=== PATIENT | male | born 1965 | race Caucasian/White ===

== ENCOUNTER 2016-06-28 23:59 | Emergency (ER) | payer MEDICARE ==
--- NOTE | ~2016-06-28 | CR72 ---
[facility] A Service of [facility] & [facility] RADIOLOGY TEXT RESULTS PATIENT: SHAGGY ARCHER LOCATION: [facility] : 67 UNIT #: [id number] AGE: [address]: Karson Gibson MD SEX: M ORDER DR: [id number] [facility] [address] [place], [place] [address] [id number] E MR#: [id number] Acc #: [id number] NAME: SHAGGY ARCHER. : 1965 SEX: M STUDY DATE/TIME: 06/29/2016 0:43 UNIT: [facility] ROOM: STUDY DESCRIPTION: CR Chest Single View Portable Attending Physician: Elyse Ramirez M.D. Ordering Physician: Elyse Ramirez M.D. Primary Care Physician: Primary Care Physician No MEDICAL IMAGING REPORT This report is preliminary unless electronic signature is present EXAM Portable chest INDICATIONS Left sided chest pain for 1 month. COMPARISON 04/23/2016. FINDINGS A portable view of the chest was obtained. The heart size and vascularity are normal and the lungs are clear. The bones are unremarkable. IMPRESSION No active disease. Dictated by... Mitul Avina M.D. THIS IS AN ELECTRONICALLY VERIFIED REPORT Mitul Avina M.D. at 06/29/2016 5:05 AM ARMANDO/tyrese TD: 06/29/2016 02:23 JOB #: [id number] MEDICAL IMAGING REPORT Page 1 of 1 COPY
--- NOTE | ~2016-06-28 | EKG ---
PATIENT: SHAGGY ARCHER UNIT #: [id number] Ventricular Rate: 66 BPM Atrial Rate: 66 BPM P-R Interval: 164 ms QRS Duration: 100 ms Q-T Interval: 402 ms QTC Calculation(Bezet): 421 ms P [place]: -5 degrees Calculated R [place]: -21 degrees Calculated T [place]: -98 degrees Diagnosis Line: Normal sinus rhythm Diagnosis Line: ST and T wave abnormality, consider inferolateral Diagnosis Line: ischemia Diagnosis Line: Abnormal ECG Diagnosis Line: When compared with ECG of 23-APR-2016 00:30, Diagnosis Line: ST no longer elevated in Anterior leads Diagnosis Line: T wave inversion now evident in Inferior leads Diagnosis Line: T wave inversion now evident in Anterolateral Diagnosis Line: leads Diagnosis Line: Confirmed by MITZY OLIVARES MD ([id number]) on Diagnosis Line: 06/30/2016 6:36:55 AM INTERPRETING : CATINA
--- NOTE | ~2016-06-28 | CT16 ---
[facility] A Service of [facility] RADIOLOGY TEXT RESULTS PATIENT: SHAGGY ARCHER LOCATION: [facility] : 67 UNIT #: [id number] AGE: [address]: Karson Gibson MD SEX: M ORDER DR: [id number] [facility] [address] [place], [place] [address] [id number] E MR#: [id number] Acc #: [id number] NAME: SHAGGY ARCHER. : 1965 SEX: M STUDY DATE/TIME: 06/29/2016 2:10 UNIT: [facility] ROOM: STUDY DESCRIPTION: CT Angio Chest for PE Attending Physician: Karson Gibson M.D. Ordering Physician: Elyse Ramirez M.D. MEDICAL IMAGING REPORT This report is preliminary unless electronic signature is present EXAM CT scan of the chest with pulmonary embolus protocol INDICATIONS Shortness of air and chest pain and back pain beginning today. COMPARISON CT chest from 02/18/2015. TECHNIQUE The patient was given 80 mL of Isovue-370 and spiral imaging was performed through the chest. 3-D reconstructions of the pulmonary arteries were generated. This CT exam was performed with one or more of the following radiation dose reduction techniques: Automatic exposure control, adjustment of mA and/or kV according to patient size, and iterative reconstruction. FINDINGS There is a medial left lower lobe nodule that is well circumscribed. It measures 2.6 x 2.5 cm and has some calcification within it. It is unchanged from 02/18/2015 and is, therefore, a benign hamartoma or a granuloma. The rest of the lungs are clear. There is optimal opacification of the pulmonary arteries and there is no CT evidence of pulmonary embolus. The aorta is normal in size and there is no dissection. The thyroid gland is normal in appearance. There are postoperative changes of the cervical spine. There is no mediastinal or hilar adenopathy. Visualized portions of the upper abdomen show an atrophic left kidney and are otherwise normal. IMPRESSION 1. Stable left lower lobe hamartoma/granuloma. 2. Atrophic left kidney. [facility] A Service of [facility] & [facility] RADIOLOGY TEXT RESULTS PATIENT: SHAGGY ARCHER [id number] 67 UNIT #: [id number] AGE: [address]: Karson Gibson MD SEX: M ORDER DR: 3. No evidence of pulmonary embolus. 4. No active disease. Dictated by... Mitul Avina M.D. THIS IS AN ELECTRONICALLY VERIFIED REPORT Mitul Avina M.D. at 06/29/2016 1:14 PM ARMANDO/tyrese TD: 06/29/2016 03:56 JOB #: [id number] MEDICAL IMAGING REPORT Page 1 of 1 COPY
[~2016-06-28 23:59] MED LIST: ALBUTEROL17 GM INH; ALPRAZOLAM PO; ASPERDRINK81 MG PO; ASPIRIN PO; ATARAX PO; ATIVAN PO; BENADRYL25 M3 PO; BENTYL20 MG PO; CARAFATE; CARAFATE1 G PO; COREG PO; CYMBALTA PO; DEPAKOTE ER PO; DIAZEPAM; DOXEPIN PO; ELIMITE60 G1 TOP; ELIMITE60 G1 TP; FLEXERIL PO; FLEXERIL10 MG; FLEXERIL10 MG PO; HYDROCODON-ACE1 EAC5 PO; KEPPRA PO; KEPPRA750 MG PO; KLONOPIN PO; LASIX PO; LEVAQUIN PO; LISINOPRIL PO; LISINOPRIL-HCTZ1 T14 PO; LOPRESSOR PO; LORAZEPAM1 MG PO; LORTAB 10-5001 EACH PO; LORTAB 10/500 T1 TAB; LORTAB 10/500 T1 TAB PO; MEDROL PO; MEDROL4 MG/DOSE- PO; METHADONE PO; METHADOSE10 MG PO; METOPROLOL/HCTZ PO; MORPHINE SULFATE PO; MS CONTIN PO; NAPROXEN SODIU500 MG PO; NORVASC; NORVASC PO; NORVASC10 MG PO; PEGASUS INJ; PERCOCET5/325 PO; PHENERGAN25 M1 PO; PHENERGAN25 MG PO; PLAVIX; PLAVIX PO; PREDNISONE PO; PROTONIX PO; RIBAPAK PO; ROBITUSSIN PE PO; SIMVASTATIN40 MG PO; SOMA; SOMA PO; VIBRAMYCIN100 M1 PO; VISTARIL PO; ZESTORETIC 20/11 TAB PO; ZOCOR PO; ZOCOR80 MG PO; ZOFRAN PO; [UNRECOGNIZED DRUG - REMARK]
[2016-06-29 00:46] LABS: URINE SOURCE CLEAN CATCH
[2016-06-29 00:50] LABS: URINE APPEARANCE CLEAR; URINE BILIRUBIN NEG (NEG); URINE BLOOD NEG (NEG); URINE COLOR YELLOW; URINE GLUCOSE >1000 MG/DL (NEG); URINE KETONE NEG (NEG); URINE LEUKOCYTE ESTERASE NEG (NEG); URINE NITRATE NEG (NEG); URINE PROTEIN NEG (NEG); URINE SPECIFIC GRAVITY 1.023 (1.003-1.035); URINE UROBILINOGEN 0.2 MG/DL (NEG)
[2016-06-29 02:00] LABS: POC - CKMB 1.4 ng/mL (0.0-7.9); POC - TROPONIN <0.05 ng/mL (<=0.05)
[2016-06-29 03:13] LABS: ALBUMIN SERUM 3.6 g/dL (3.5-5.0); ALKALINE PHOSPHATASE 57 U/L (32-92); ALT (SGPT) 16 U/L (10-40); AST (SGOT) 22 U/L (10-42); BILIRUBIN, DIRECT 0.1 mg/dL (0.0-0.2); BILIRUBIN,INDIRECT 0.4 mg/dL (0.0-0.9); BILIRUBIN,TOTAL 0.5 mg/dL (0.2-2.0); BLOOD UREA NITROGEN 12 mg/dL (9-23); CALCIUM SERUM 8.8 mg/dL (8.4-10.2); CARBON DIOXIDE 26 mmol/L (22-31); CHLORIDE 102 mmol/L (100-111); CPK (CREATINE PHOSPHOKINASE) 110 IU/L (36-174); CREATININE SERUM 1.1 mg/dL (0.6-1.4); GLOM FILT RATE Estimated 78.4 mL/min (>60); GLUCOSE FASTING 108 mg/dL (70-110); POTASSIUM 3.8 mmol/L (3.5-5.1); PROTEIN TOTAL SERUM 7.2 g/dL (6.0-8.3); SODIUM 135 mmol/L (135-145)
[2016-06-29 03:13] LABS: AMPHETAMINE NEG (NEG); BARBITURATES NEG (NEG); BENZODIAZEPINES NEG (NEG); COCAINE NEG (NEG); MARIJUANA NEG (NEG); OPIATES NEG (NEG); TRICYCLIC ANTIDEPRESSANTS NEG (NEG); U METHADONE NEG (NEG)
[2016-06-29 03:14] LABS: BASOPHIL% 0.6 % (0-2.5); EOSINOPHIL# 0.2 X10e3 (0-0.7); EOSINOPHIL% 2.3 % (0.0-7.0); HEMATOCRIT 36.7 % (38.0-50.0); HEMOGLOBIN 12.2 gm/dL (13.0-16.0); LYMPHOCYTE# 1.6 X10e3 (1.0-3.5); LYMPHOCYTE% 23.9 % (17.0-45.0); MEAN CORPUSCULAR HEMOGLOBIN 27.5 PG (28-34); MEAN CORPUSCULAR HGB CONC 33.1 g/dL (30-36); MEAN PLATELET VOLUME 6.9 FL (6.5-11.5); MONOCYTE# 0.5 X10e3 (0-1.0); MONOCYTE% 8.2 % (3.0-12.0); NEUTROPHIL# 4.3 X10e3 (1.5-7.1); PLATELET COUNT 247 X10e3 (140-420); RED BLOOD COUNT 4.43 X10e (3.90-5.60); RED CELL DISTRIBUTION WIDTH 16.4 % (11.0-15.5); WHITE BLOOD COUNT 6.6 X10e3 (4.0-10.5)
[2016-06-29 03:15] LABS: ALCOHOL BLOOD <5 mg/dL (0)
[2016-06-29 03:22] LABS: DIFF IND NO
[2016-06-29 03:23] LABS: PARTIAL THROMBOPLASTIN TIME 27.7 SECONDS (23.5-31.3); PROTHROMBIN TIME (PATIENT) 10.9 SECONDS (9.6-11.5)
[2016-06-29 03:40] LABS: CULTURE INDICATED? NO
[2016-06-29 03:56] LABS: POC - CKMB 1.5 ng/mL (0.0-7.9); POC - TROPONIN <0.05 ng/mL (<=0.05)
== END 2016-06-29 04:33 | disposition home or self-care (01) ==
LOC: CED 23:59
PROVIDERS: Emergency Medicine
DX: M54.6 Pain in thoracic spine (principal); R51 Headache; I11.0 Hypertensive heart disease with heart failure; I50.9 Heart failure, unspecified; J44.9 Chronic obstructive pulmonary disease, unspecified; K21.9 Gastro-esophageal reflux disease without esophagitis; Z86.19 Personal history of other infectious and parasitic diseases; F17.210 Nicotine dependence, cigarettes, uncomplicated; Z79.899 Other long term (current) drug therapy; Z88.8 Allergy status to other drugs, medicaments and biological substances
CPT/HCPCS: 36415; 71010; 71275; 80048; 80076; 80307; 81003; 82550; 82553; 83880; 84484; 85025; 85610; 85730; 93005; 96374; 99284; G0480; J1885; Q9967

== ENCOUNTER 2016-07-20 18:11 | Inpatient (IN) | payer MEDICARE ==
--- NOTE | ~2016-07-20 | PN ---
Unit #: [id number] #: [id number] Patient: DAVID ARCHER [id number] [facility] [address] [place] [address] [id number] I MR#: [id number] NAME: DAVID ARCHER. ROOM: [facility] Age: 50 Sex: M Admission Date: 07/20/2016 : 1965 Attending Physician: Darius May M.D. Admitting Physician: Darius May M.D. Primary Care Physician: Marleny Primary Care Physician GIULIANO PROGRESS NOTES DATE OF SERVICE 07/22/2016 DISCUSSION David Archer is a 50-year-old male seen on 07/22/2016. Patient interviewed, chart reviewed, and obtained information from nursing staff. Patient compliant and cooperative. Mood sad, dysphoric. Flat affect, withdrawn, isolative, and guarded. Vital signs: 98.6, 87, and 113/76. REVIEW OF SYSTEMS Complete review of systems unremarkable. MENTAL STATUS EXAMINATION GENERAL APPEARANCE: Patient dressed casually. ATTENTION SPAN AND CONCENTRATION: Fair. ORIENTATION: Oriented in place and person. MOOD AND AFFECT: Sad, depressed. SPEECH: Monotone. THOUGHT PROCESS: [place]. Patient denied any thoughts of harming self or others, but withdrawn, isolative, flat affect, sad, dysphoric mood. RECENT AND REMOTE MEMORY: Poor. INSIGHT AND JUDGEMENT: Poor. DIAGNOSES 1. Major depressive disorder, recurrent. 2. Opiate use disorder, severe. 3. Amphetamine use disorder, severe. ASSESSMENT/PLAN Advised to continue with current medication and therapeutic protocol. If needed, consider further adjustment of medication. Dictated by... Shikha Jonas/emily TD: 07/24/2016 10:14 JOB #: [id number] Unit #: [id number] #: [id number] Patient: DAVID ARCHER [facility] PROGRESS NOTES Page 1 of 1 X Darius May MD PROGRESS NOTE
--- NOTE | ~2016-07-20 | DS ---
Unit #: [id number] #: [id number] Patient: SHAGGY ARCHER [id number] [facility] [address] [place] [address] [id number] I MR#: [id number] NAME: SHAGGY ARCHER. ROOM: 82 Age: 50 Sex: M Admission Date: 07/20/2016 : 1965 Discharge Date: 07/23/2016 Attending Physician: Darius May M.D. Primary Care Physician: Primary Care Physician No DISCHARGE SUMMARY REASON FOR ADMISSION Suicidal ideation. DIAGNOSTIC STUDIES LABORATORY RESULTS: Unremarkable except positive for amphetamine and opioids. HOSPITAL COURSE The patient was admitted to inpatient unit on 07/20/2016 and discharged on 07/23/2016. The patient was treated on the inpatient unit with group therapy, individual therapy, and medication management. The patient responded well with the above modalities of treatment. Subsequently, the patient requested for discharge. The patient was discharged with a plan to follow up in outpatient program. At the time of discharge, the patient denied any suicidal or homicidal ideation. Denied any psychotic symptom. DISCHARGE MEDICATIONS None. The patient is to continue with home medication. DISCHARGE DIAGNOSES Psychiatric: 1. Major depressive disorder, recurrent, moderate, F33.2. 2. Opioid use disorder, moderate, F11.20. 3. Amphetamine use disorder, moderate, F15.20. Secondary diagnosis: Deferred. Medical diagnosis: Please refer to H and P. Stressors: Psychosocial stressors. DISCHARGE INSTRUCTIONS The patient is to follow up in outpatient clinic as per social media content specialist. CONDITION ON DISCHARGE The patient was pleasant and cooperative. Denied any psychotic symptom or any suicidal ideation. PROGNOSIS Guarded. DIET AND ACTIVITY As tolerated. Unit #: [id number] #: [id number] Patient: SHAGGY ARCHER Dictated by... Shikha Jonas/tony TD: 07/24/2016 03:43 JOB #: [id number] DISCHARGE SUMMARY Page 1 of 1 X Darius May MD X DISCHARGE SUMMARY
--- NOTE | ~2016-07-20 | HP ---
Unit #: [id number] #: [id number] Patient: SHAGGY ARCHER [id number] [place] [address] [id number] I MR#: [id number] NAME: SHAGGY ARCHER. ROOM: P182 Age: 50 Sex: M Admission Date: 07/20/2016 : 1965 Attending Physician: Darius May M.D. Admitting Physician: Darius May M.D. Primary Care Physician: Primary Care Physician No HISTORY AND PHYSICAL HISTORY OF PRESENT ILLNESS The patient is a 50-year-old male who states he is here for heroin abuse. PAST MEDICAL HISTORY Significant for hypertension. PAST SURGICAL HISTORY Significant for neck fusion. ALLERGIES Per chart, it states Reglan, propoxyphene, Darvocet, Compazine. SOCIAL HISTORY Positive for smoking and heroin abuse. FAMILY HISTORY Noncontributory. REVIEW OF SYSTEMS CONSTITUTIONAL: No fever or chills. HEENT: Denies any sore throat, ear pain or runny nose. CARDIOVASCULAR: Denies chest pain, irregular heart rhythm or palpitations. CHEST: Denies shortness of breath or cough. No hemoptysis. GASTROINTESTINAL: Denies nausea, vomiting, diarrhea or chronic constipation. ENDOCRINE: Denies history of increased thirst or urination. No recent significant weight loss or gain. GENITOURINARY: Denies dysuria, frequency, or hematuria. SKIN: Denies any rashes. HEMATOLOGIC: Denies history of increased bleeding or bruising. MUSCULOSKELETAL: Denies any hot, swollen joints. No generalized muscle pain. NEUROLOGIC: Denies problems with vision or speech. No frequent, severe headaches. No numbness, tingling or weakness in any extremities. Denies loss of bladder or bowel control. CURRENT MEDICATIONS 1. Lisinopril/HCTZ 20/12.5 one p.o. b.i.d. 2. Norvasc 5 mg p.o. daily. 3. Nexium 40 mg daily. 4. Aspirin 81 mg daily. 5. Potassium 10 mEq daily. 6. Lasix 40 mg daily. Unit #: [id number] #: [id number] Patient: SHAGGY ARCHER 7. Hydrocodone 10/325 p.o. q. 4 hours p.r.n. PHYSICAL EXAMINATION GENERAL: Alert, oriented, in no acute distress. VITAL SIGNS: Temperature is not available. Heart rate 85, respirations 20, blood pressure 178/103. HEIGHT: 5 feet 9 inches. WEIGHT: 155 pounds. SKIN: Warm and dry without rash or lesion. Scabbed areas to back, one scabbed area at the left scapular area and another at the right subscapular area. Patient also has scabbed areas to his scalp. No bleeding, no drainage, no edema. HEENT: Normocephalic. TMs not viewed. Oral and nasal passages clear. Conjunctivae clear. PERRLA. EOMs intact. NECK: Supple without lymphadenopathy or thyromegaly. HEART: Regular rate and rhythm without murmur. LUNGS: Clear. ABDOMEN: Soft, nontender, without masses or hepatosplenomegaly. : Not done. EXTREMITIES: No evidence of cyanosis, clubbing or edema. Moves all without focal deficit. NEUROLOGICAL: Grossly within normal limits. Cranial Nerves: II: Visual pichardo are intact. III, IV AND : Extraocular movements are intact. Pupils are equal, round and reactive to light. V: Facial sensation is grossly normal. VII: Facial movements and expression are normal. VIII: Auditory acuity grossly intact. IX, X: Uvula is midline. Phonation is normal. XI: Patient shrugs shoulders and turns head normally. XII: Tongue protrudes in the midline. Sensory and Motor Function: Sensory and motor sensation is grossly normal. Motor: moves all extremities well. Coordination: Gait is normal. Deep Tendon Reflexes: Intact. IMPRESSION Psychiatric admission. RECOMMENDATIONS PSYCHIATRIC: Per psychiatrist. MEDICAL: No contraindications to participate in facility's activities. MEDICAL PROGNOSIS Good. Dictated by... Gala Juarez/marquita TD: 07/21/2016 17:59 JOB #: [id number] Unit #: [id number] #: [id number] Patient: SHAGGY ARCHER HISTORY AND PHYSICAL Page 1 of 1 X Sierra Ahmadi APR X HISTORY AND PHYSICAL
--- NOTE | ~2016-07-20 | PN ---
Unit #: [id number] #: [id number] Patient: DAVID ARCHER [id number] [facility] [address] [place] [address] [id number] MR#: [id number] NAME: DAVID ARCHER. ROOM: P182 Age: 50 Sex: M Admission Date: 07/20/2016 : 1965 Attending Physician: Darius May M.D. Admitting Physician: Darius May M.D. Primary Care Physician: Primary Care Physician Marleny CARABALLO NOTES DATE OF SERVICE: 07/21/2016 DISCUSSION Mr. David Archer is a 50-year-old male, seen on 07/21/2016. The patient interviewed, chart reviewed, and obtained information from nursing staff. The patient is compliant and cooperative. Mood is sad, dysphoric, flat affect, guarded. The patient denied any thoughts of harming self or others, but still having passive SI, withdrawn, guarded, flat, sad. REVIEW OF SYSTEMS Complete review of systems unremarkable. MENTAL STATUS EXAMINATION General appearance, the patient dressed casually. Attention span and concentration, poor. Oriented in place and person. Mood and affect, sad and depressed. Speech, monotone. Thought process, concrete. The patient reported having passive SI. Denied any homicidal ideation. Withdrawn, isolative, guarded. Recent and remote memory, poor. Insight and judgment, poor. DIAGNOSES 1. Major depressive disorder, recurrent, moderate. 2. Opioid use disorder, moderate. 3. Amphetamine use disorder, moderate. ASSESSMENT/PLAN Advised to continue with current medication and therapeutic protocol. If needed, consider further adjustment of medication. Dictated by... Shikha Jonas/tony TD: 07/23/2016 02:34 JOB #: [id number] Unit #: [id number] #: [id number] Patient: DAVID ARCHER [facility] PROGRESS NOTES Page 1 of 1 X Darius May MD PROGRESS NOTE
--- NOTE | ~2016-07-20 | PA ---
Unit #: [id number] #: [id number] Patient: DAVID ARCHER [id number] [facility] [address] [place] [address] [id number] MR#: [id number] NAME: DAVID ARCHER. ROOM: P182 Age: 50 Sex: M Admission Date: 07/20/2016 : 1965 Date of Assessment: Attending Physician: Darius May M.D. Admitting Physician: Darius May M.D. Primary Care Physician: Primary Care Physician No PSYCHIATRIC ASSESSMENT INFORMANT The patient reliability, fair; chart reliability, good. CHIEF COMPLAINT Depression and suicidal ideation. HISTORY OF PRESENT ILLNESS Mr. David Archer is a 50-year-old male, seen on with the above-mentioned complaint. The patient reported that he was tired of living, feel like killing himself having suicidal ideation, also reported using heroin. The patient reported increase in depression and substance abuse. Reported suicidal ideation with a plan to get a gun from a friend or hang himself. The patient reported feeling of hopelessness, worthlessness, loss of interest. Declining ADL. Denied any homicidal ideation. Denied any psychotic symptom. The patient reported using a gram of heroin IV daily. The patient reported last use was yesterday, methamphetamine use 1 to 2 times per month. The patient scored 10 on COWS and CIWA score. The patient needing inpatient admission at this time for psychiatric stabilization. PAST PSYCHIATRIC HISTORY Remarkable for history of previous treatment, [facility], [facility], and [facility]. [facility]. FAMILY HISTORY AND SOCIAL HISTORY The patient's family history is unavailable at this time. Poor support system. No history of any abuse. MEDICAL HISTORY Remarkable for hypertension, GERD, chronic back pain, 8 bulging disks, lung cancer. MEDICATIONS HISTORY The patient is on lisinopril, Norvasc, Coreg, Nexium, Plavix. ALLERGIES No known drug allergies. SUBSTANCE ABUSE HISTORY The patient reported tobacco use, age of onset 16; crack cocaine, age of onset 23; LSD at 35; opioid use, age of onset 30; amphetamine, age of onset 49. The patient reported history of blackout. No history of HIV, Unit #: [id number] #: [id number] Patient: DAVID ARCHER hepatitis, history of withdrawal symptoms, history of IV drug use. Currently reporting hot and cold chills, body ache, stomach cramping. REVIEW OF SYSTEMS HEENT: Eyes, clear. Ears, nose, mouth, and throat; clear. CARDIOVASCULAR: Unremarkable. RESPIRATORY: Unremarkable. GI: Unremarkable. : Unremarkable. SKIN: Unremarkable. LYMPH NODE: Unremarkable. NEUROLOGIC: Unremarkable. ENDOCRINE: Unremarkable. HEMATOLOGIC: Unremarkable. ALLERGIC/IMMUNOLOGIC: Unremarkable. MUSCULOSKELETAL: Muscle strength and tone, no atrophy or abnormal movement. Gait normal except as mentioned above. MENTAL STATUS EXAMINATION Vital signs; temperature 98.2, height 5 feet 9 inches, weight 155 pounds. GENERAL APPEARANCE: The patient dressed casually. No facial deformity noted. Musculoskeletal; please see above. PSYCHIATRIC EXAMINATION Description of speech; slow. Description of thought process, circumstantial. Description of association, guarded and paranoid. Description of abnormal psychotic thinking; denied any psychotic symptom, but reported feeling sad, depressed, feeling suicidal. Denied any homicidal ideation. Description of the patient's judgment, concerning everyday activity, poor. Social situation, poor. Concerning psychiatric condition, poor. Complete mental status examination; oriented in time, place, and person. Recent and remote memory, fair. Attention span and concentration, fair. Language, fair. Fund of knowledge, fair. Vocabulary, intact. Mood and affect, sad and dysphoric. Insight and judgment, fair to poor. ASSETS AND LIABILITIES Assets; the patient articulate, able to take care of his ADL. Liability, history of substance abuse and depression. ADMITTING DIAGNOSES Psychiatric: Major depressive disorder, recurrent, severe, F33.2; opiate use disorder, moderate, F11.20; amphetamine use disorder, moderate, F15.20. Secondary diagnosis: Deferred. Medical diagnosis: Please refer to H and P. Stressors: Psychosocial stressors. PSYCHIATRIC PLAN AND TREATMENT GOAL 1. Advised to admit the patient on the inpatient unit. Provide safe, supportive, and structured environment. 2. Ordered labs; CBC, CMP, UA, and UDS. Medical consult to monitor the patient's medical condition. 3. The patient to start with detox protocol and detox monitoring. Recommending at this time to continue with current treatment. If needed, Unit #: [id number] #: [id number] Patient: DAVID ARCHER consider medications such as SSRI for depression. The patient to be monitored closely. The patient to attend all the programing on the inpatient unit with group therapy, individual therapy, family session if possible. 4. Treatment goal to attain euthymic mood, gain insight into his problem, and learn coping skills. DISCHARGE PLAN Plan to stabilize the patient and consider followup in outpatient program. ESTIMATED LENGTH OF STAY 5 days. Dictated by... Darius May M.D. ANDREW/tony TD: 07/22/2016 06:31 JOB #: [id number] PSYCHIATRIC ASSESSMENT Page 1 of 1 X Darius May MD X PSYCHIATRIC ASSESSMENT
[2016-07-23 10:16] LABS: URINE APPEARANCE CLEAR; URINE BILIRUBIN NEG (NEG); URINE BLOOD 3+ (NEG); URINE COLOR YELLOW; URINE GLUCOSE NEG (NEG); URINE KETONE NEG (NEG); URINE LEUKOCYTE ESTERASE NEG (NEG); URINE NITRATE NEG (NEG); URINE PH 6.5 (5-8); URINE PROTEIN NEG (NEG); URINE SPECIFIC GRAVITY 1.022 (1.003-1.035)
[2016-07-23 10:21] LABS: URBCS1 AUWI 100-200 /[HPF] (0-2); URINE BACTERIA AUWI NEG (NEGATIVE); URINE SQUAMOUS EPITHELIAL CELL NONE SEEN /[HPF]; UWBCS1 AUWI 0-2 (0-5)
[2016-07-23 11:13] LABS: AMPHETAMINE POS (NEG); BARBITURATES NEG (NEG); BENZODIAZEPINES NEG (NEG); COCAINE NEG (NEG); MARIJUANA NEG (NEG); OPIATES POS (NEG); TRICYCLIC ANTIDEPRESSANTS NEG (NEG); U METHADONE NEG (NEG)
[2016-07-24] MEDS ORDERED: NORVASC PO (07:46)
[2016-07-24] MEDS ORDERED: ZESTORETIC 20-1 EAC1 PO (07:46)
[2016-07-24] MEDS ORDERED: ASPIRIN81 MG PO (07:47)
[2016-07-24] MEDS ORDERED: NEXIUM PO (07:47)
[2016-07-24] MEDS ORDERED: LASIX PO (07:50)
[2016-07-24] MEDS ORDERED: K-DUR10 MEQ PO (07:50)
[2016-07-24] MEDS ORDERED: LORTAB 10-3251 EACH PO (20:12)
[2016-07-24] MEDS ORDERED: METHADONE HCL10 MG PO (20:13)
== END 2016-07-23 12:37 | disposition home or self-care (01) | DRG 885 ==
LOC: P1E 18:28
PROVIDERS: Psychiatry & Neurology Psychiatry
PROC: HZ2ZZZZ Detoxification Services for Substance Abuse Treatment (ICD-10-PCS; principal; 2016-07-20)
DX: F33.2 Major depressive disorder, recurrent severe without psychotic features (principal); F11.20 Opioid dependence, uncomplicated; R45.851 Suicidal ideations; F15.20 Other stimulant dependence, uncomplicated; I10 Essential (primary) hypertension; Z79.82 Long term (current) use of aspirin
CPT/HCPCS: 80307; 81003

== ENCOUNTER 2016-07-24 03:02 | Inpatient (IN) | payer MEDICARE ==
--- NOTE | ~2016-07-24 | CR72 ---
[facility] A Service of [facility] & [facility] RADIOLOGY TEXT RESULTS PATIENT: SHAGGY ARCHER LOCATION: [facility] [address] : [birth year] UNIT #: [id number] AGE: [address]: Yeyo Pedro MD SEX: M ORDER DR: [id number] [facility] [address] [place], [place] [address] [id number] MR#: [id number] Acc #: [id number] NAME: SHAGGY ARCHER : 1965 SEX: M STUDY DATE/TIME: 07/24/2016 05:20 UNIT: [facility] ROOM: STUDY DESCRIPTION: CR Chest Single View Portable Attending Physician: Anthony Batista Aprn Ordering Physician: Anthony Batista Aprn Primary Care Physician: Primary Care Physician No MEDICAL IMAGING REPORT This report is preliminary unless electronic signature is present EXAM Portable chest, 07/24 at 05:20 INDICATION Shortness of air and weakness today. Seizure today. History of smoking. FINDINGS AP portable chest is compared with 06/29/2016. Cardiac and mediastinal contours are within normal limits. The lungs are clear. There is no pneumothorax. Patient is status post cervical fusion. Chronic changes at the right AC joint appears stable. There are no acute fractures. IMPRESSION No active disease. Dictated by... Duc Dhillon Jr., M.D. THIS IS AN ELECTRONICALLY VERIFIED REPORT Duc Dhillon Jr., M.D. at 07/25/2016 5:53 AM MANOLO/carmen TD: 07/24/2016 08:02 JOB #: [id number] MEDICAL IMAGING REPORT Page 1 of 1 COPY
--- NOTE | ~2016-07-24 | HP ---
Unit #: [id number] #: [id number] Patient: SHAGGY ARCHER [id number] [address] [place], [place] [address] [id number] I MR#: [id number] NAME: SHAGGY ARCHER. ROOM: 22456 Age: 50 Sex: M Admission Date: 07/24/2016 : 1965 Attending Physician: Yeyo Pedro M.D. Primary Care Physician: No Primary Care Physician HISTORY AND PHYSICAL CHIEF COMPLAINT Seizures. HISTORY OF PRESENTING ILLNESS The patient is a 50-year-old man with a past medical history of seizure disorder, not taking any antiepileptic medications, history of coronary artery disease, status post stent, hypertension, depression, IV drug abuse, presented to the emergency room with a chief complaint of a seizure episode. [facility] and he was discharged yesterday and he went home. His family found him having seizures and because of that he was brought to the emergency room. He mentions that he follows up with Dr. Bhardwaj in the past, supposed to be on Keppra, not taking any of the antiseizure medications because he feared his driving license would be taken away and yesterday he had a witnessed seizure episode. He denies any fevers. He denies any chills, denies any nausea, vomiting, diarrhea, denies having any weakness in his hands and legs. He denies using any illicit drugs after he left [facility]. He is very emotionally labile, crying while we are talking in the emergency room. In the emergency room my neurological exam was nonfocal. Neurology was consulted and he is getting admitted for further management. PAST MEDICAL HISTORY 1. History of IV drug use with heroin and amphetamines. He was [facility] and discharged yesterday. 2. History of coronary artery disease, status post stent placement. 3. History of chronic diastolic heart failure with an EF of 35%. 4. COPD. 5. Hypertension. 6. Bipolar disorder. 7. History of suicidal ideations. Kindly note there is no suicidal ideation now. 8. History of seizure disorder. 9. GERD. 10. Migraine. 11. Chronic neck pain and back pain. 12. Tobacco abuse. 13. Hep C. He mentions he was treated in the past for hep C and he is clean from that. 14. He also mentions that he had a history of lung cancer in the past. ALLERGIES Prochlorperazine, propoxyphene, Reglan. Unit #: [id number] #: [id number] Patient: SHAGGY ARCHER HOME MEDICATIONS 1. Zestoretic 20/12.5 mg one tab b.i.d. 2. Norvasc 5 mg daily. 3. Nexium 40 mg. 4. Aspirin 81 mg. 5. Potassium chloride 10 mEq daily. 6. Lasix 40 mg p.o. daily. FAMILY HISTORY Noncontributory to the current admission. SOCIAL HISTORY Currently on disability, he smokes a pack a day. History of opioid and amphetamine abuse, he denies any current use of the drugs. He mentions that he used to do IV drugs and he used to use fresh needles. REVIEW OF SYSTEMS A complete review of systems was done, negative except for what is mentioned in the HPI. PHYSICAL EXAMINATION VITAL SIGNS: Temperature 98.1, pulse rate 79, respirations 16, blood pressure 150/82. GENERAL: Patient is alert and oriented x3, very labile, crying while talking. HEENT: Normocephalic and atraumatic. No icterus. PERRLA. Extraocular movements intact. NECK: Neck is supple. No JVD. HEART: S1, S2, regular rate and rhythm. CHEST: Bilateral equal air entry, clear to auscultation. ABDOMEN: Soft, nontender. EXTREMITIES: No edema. Normal pulses. Multiple old IV needle track canela. DIAGNOSTIC STUDIES LABORATORY DATA: Glucose 106, BUN 48, creatinine 2.8, sodium 138, potassium 3.8, chloride 104, bicarb 22, WBC 11.1, hemoglobin 13.3, platelet count is 316. Tox screen positive for amphetamines and opiates. UA shows 50 to 100 RBCs, 10 to 25 hyaline casts, leukocyte esterase and nitrites negative. IMAGING: Chest x-ray no active cardiopulmonary disease. CT head ventricular size and configuration are normal. No acute infarct or hemorrhage seen. No masses. There is no skull fracture. He did get an MRI of the brain. The reading is pending at this point. PROBLEMS 1. Seizure episode: He has a history of seizure disorder in the past, supposed to be on Keppra, not taking any medications. I spoke with him at length, emphasized that he needs to take the medications. Neurology is consulted, will go from their input. Explained he needs to stop from driving until cleared by Neurology. Explained both to the patient and to his daughter he cannot drive until he is cleared by Neurology and I explained to him he needs to avoid fireplaces and bodies of water like water pools for the safety of patient. He will Unit #: [id number] #: [id number] Patient: SHAGGY ARCHER be restarted on Keppra. Will get an MRI of brain and will go from the MRI findings. 2. Depression, history of substance abuse and labile mood: Will consult Dr. May and will go from his input. 3. Acute kidney injury: He is on UDAY inhibitor, hydrochlorothiazide, Lasix. Will hold all of them. Will gently start him on IV fluids. His CK levels are not that much elevated. Will start on IV fluids and monitor. If the renal function does not improve, will consider Renal input. He mentions that he does have a solitary kidney; will get him a renal ultrasound to evaluate for that. 4. History of hepatitis C: Will request him to follow with GI as an outpatient. 5. History of cirrhosis. 6. History of substance abuse. 7. History of hypertension: Will monitor his blood pressures and titrate the medications. 8. DVT precautions. 9. Smoking: Counseled him to quit smoking. Dictated by Shikha Salamanca/norma TD: 07/24/2016 15:17 JOB #: [id number] HISTORY AND PHYSICAL Page 1 of 1 X X HISTORY AND PHYSICAL
--- NOTE | ~2016-07-24 | EKG ---
PATIENT: SHAGGY ARCHER UNIT #: [id number] Ventricular Rate: 80 BPM Atrial Rate: 80 BPM P-R Interval: 152 ms QRS Duration: 96 ms Q-T Interval: 386 ms QTC Calculation(Bezet): 445 ms P [place]: -14 degrees Calculated R [place]: -8 degrees Calculated T [place]: 135 degrees Diagnosis Line: Normal sinus rhythm Diagnosis Line: ST and T wave abnormality, consider lateral ischemia Diagnosis Line: Abnormal ECG Diagnosis Line: When compared with ECG of 29-JUN-2016 00:24, Diagnosis Line: ST no longer depressed in Inferior leads Diagnosis Line: Non-specific change in ST segment in Anterior Diagnosis Line: leads Diagnosis Line: T wave inversion no longer evident in Inferior Diagnosis Line: leads Diagnosis Line: Confirmed by TOYIN VALDEZ MD ([id number]) on 07/26/2016 Diagnosis Line: 10:25:55 AM INTERPRETING MD: JOSÉ MIGUEL SOLIS
--- NOTE | ~2016-07-24 | CO ---
Unit #: [id number] #: [id number] Patient: DAVID ARCHER [id number] [address] [address] [id number] I MR#: [id number] NAME: DAVID ARCHER. ROOM: 229 Age: 50 Sex: M Admission Date: 07/24/2016 : 1965 Attending Physician: Yeyo Pedro M.D. Primary Care Physician: Marleny Primary Care Physician Consultation Date: 07/25/2016 CONSULTATION REPORT REASON FOR CONSULTATION Psychosis, substance abuse, agitation. HISTORY OF PRESENT ILLNESS Mr. David Archer is a 50-year-old male seen in room 229 bed-1 on 07/25/16 at [facility]. Patient was recently discharged from [facility], admitted with a seizure. Patient's urine drug screen positive for amphetamine and opiates. Patient reported not taking his medication. Patient was having bizarre thought process, guarded, paranoid. Patient also reported some delusions, paranoia, reported something coming from his head. Patient was very guarded, paranoid, mood lability. Poor insight, poor judgment. Patient admitted to using marijuana and patient admitted to using opiates and amphetamines. Mood was labile. VITAL SIGNS: 98.4, 88, 20, 181/80. Oxygen saturation 100%. PAST PSYCHIATRIC HISTORY Remarkable for history of previous treatment for substance abuse at [facility] multiple times. MEDICAL HISTORY 1. History of seizures. 2. Hypertension. 3. Bipolar mood disorder. 4. Suicidal ideation. 5. Seizure disorder. 6. GERD. 7. Migraine. 8. Chronic neck pain. 9. Chronic back pain. 10. Hepatitis C. MEDICATIONS The patient is on: 1. Norvasc. 2. Nexium. 3. Aspirin. 4. Potassium. 5. Lasix. Please refer to MAR for details. FAMILY HISTORY/SOCIAL HISTORY Unit #: [id number] #: [id number] Patient: DAVID ARCHER The patient has a good support system. Denies any history of abuse. History of substance abuse as mentioned above. REVIEW OF SYSTEMS Complete review of systems is unremarkable except as mentioned above. MENTAL STATUS EXAMINATION VITAL SIGNS: Please see above. GENERAL APPEARANCE: Patient dressed in hospital attire. Attention span and concentration fair. Speech is rapid. Orientation to self and place. Mood and affect labile. Thought process circumstantial. Thought content guarded, disorganized. Thought process - paranoia, delusional but denies suicidal or homicidal ideation. Recent and remote memory poor. Language - intact. Fund of knowledge fair. Insight and judgment fair to poor. DIAGNOSIS PSYCHIATRIC: 1. 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 Amphetamine use disorder, moderate - F15.20 3. Opiate use disorder, moderate - F11.20 SECONDARY DIAGNOSIS Deferred. MEDICAL DIAGNOSIS Please refer to H and P. STRESSORS Psychosocial stressor. ASSESSMENT/PLAN 1. Supportive psychotherapy and psychoeducation provided to patient. 2. Educated about benefits and side effects of medication and coarse and prognosis of illness. 3. Advised Neurontin 300 mg twice daily for withdrawal symptoms, Vistaril 25 mg three times a day for anxiety. Trazodone 100 mg at bedtime for sleep. Advised, after patient is medically stable, to transfer to [facility] for psychiatric stabilization. Please feel free to call if any questions. Telephone number [phone]. Dictated by... Shikha Jonas/caterina TD: 07/26/2016 06:55 JOB #: [id number] Unit #: [id number] #: [id number] Patient: DAVID ARCHER CONSULTATION REPORT Page 1 of 1 X Darius May MD X CONSULTATION REPORT
--- NOTE | ~2016-07-24 | CO ---
Unit #: [id number] #: [id number] Patient: SHAGGY ARCHER [id number] [facility] [address] [facility]. [place], [place] [address] [id number] I MR#: [id number] NAME: SHAGGY ARCHER. ROOM: 48460 Age: 50 Sex: M Admission Date: 07/24/2016 : 1965 Attending Physician: Dimitry Montero M.D. Primary Care Physician: Marleny Primary Care Physician Requesting Physician: Yeyo Pedro M.D. Consultation Date: 07/24/2016 CONSULTATION REPORT REASON FOR CONSULT Seizure. PATIENT IDENTIFICATION This is a 50-year-old, right-handed, male evaluated in ER T6 at [facility]. SOURCE OF INFORMATION Obtained from the patient, as well as the medical record. HISTORY OF PRESENT ILLNESS This is a 50-year-old, right-handed, male with a past medical history of seizure disorder and other medical issues who presented to [facility] with report of seizure activity. The patient states that he has a remote history of seizures, although he states he has not had any in several years. He states that he used to be on Keppra and was followed by Dr. Bhardwaj but states that he quit taking Keppra because he was "afraid I would get my license taken away." He states he had no trouble taking the medication otherwise and had no side effects. He states that he has never had an MRI of the brain because he was afraid of having one in the past given the closed-in space. He is a poor historian regarding his diagnosis but states he has not had any events in several years. He was just recently at [facility] for rehabilitation, in detox from opioids and amphetamines. He has a history of heroin use and amphetamine use. He was admitted for suicidal ideation and was treated for major depressive disorder, opioid use disorder and amphetamine use disorder. He states that, last night, he was at home with family and friends whenever he had a seizure event. He apparently does not remember all of it. He states initially he was watching TV and was going to go to sleep. He states that apparently he began to have shaking activity. He says that he believes he was aware at one point but then states that his father told him that he was tapping his arm on the table. He states he thought he was saying something but does not really recall anything after that. Apparently he began to have generalized tonic-clonic seizure shaking activity. Reportedly that lasted 30 minutes, but I do not have any details from family here. I am not sure if he was postictal for 30 minutes following that. I do not have details, and the patient cannot give me any details regarding what happened. He was brought here for further evaluation. I do not see any documentation of any further seizure activity. He was Unit #: [id number] #: [id number] Patient: SHAGGY ARCHER admitted for further workup of seizures. He was loaded with 1 gram of Keppra in the ER, was treated with a Lortab pill and given a 500 mL normal saline bolus. Patient is tearful right at this time but stable. Exam is nonfocal neurologically. He follows commands. He is oriented to person, place and time. He complains of blurred vision chronically, more of a difficulty with focusing as far as acuity. He denies any sudden changes in vision. He does complain of chronic headache but denies any new fever or chills, headache, change in weight or routine, weight loss, focal weakness or paresthesias, shortness of air, chest pain or palpitations, any bruising or bleeding or any other sudden changes in his health. Looking at his records, again, it looks like he was just discharged yesterday from [facility] for above treatment of psychiatric disorder and drug abuse detox. He had a head CT done here without contrast in the ER on 07/24/16 that was negative, chest x-ray that was negative. Urinalysis shows 100 to 200 red cells but negative for bacteria. Microbiology and culture not indicated. Urine tox screen is positive for amphetamines and opiates. White blood cell count 11.1, hemoglobin 13.3, hematocrit 41.3, platelet count 316. Sodium 138, potassium 3.8, chloride 104, CO2 22, glucose 136, BUN 48, creatinine 2.8, estimated GFR 25.3, calcium 8.6. Liver enzymes are unremarkable. Total protein 7.1, albumin 3.7. D-dimer is 320. Repeat urinalysis is negative for bacteria. It does show some red cells. Culture not indicated. Repeat urine tox screen positive for amphetamines and opiates. CPK is 55. These labs were done in the ER on arrival. PAST MEDICAL HISTORY 1. Discharged from [facility] in 2009 for a hospital stay where he was treated for chest pain, and acute myocardial infarction was ruled out. He was treated for left ventricular heart failure with ejection fraction of 35%. He has a history of coronary artery disease status post left anterior descending stent in January of 2008. 2. COPD. 3. Hypertension. 4. Bipolar disorder. 5. Suicidal ideation. Please see above. 6. Past history of seizures, as discussed above. Patient stopped taking medications. He apparently saw Dr. Oksana Bhardwaj in the past. We will request records. 7. History of migraine. 8. Gastroesophageal reflux disease. 9. Chronic neck pain and chronic back pain. History of cervical neck fusion. 10. Tobacco abuse. 11. Opioid and amphetamine dependence and abuse. 12. Anxiety. 13. Hepatitis C. 14. Hiatal hernia. 15. Right hand surgery. 16. ST elevated myocardial infarction in 2007, per records. ALLERGIES Prochlorperazine, propoxyphene, metoclopramide. HOME MEDICATIONS (as per med/rec) 1. Zestoretic 20/12.5 mg 1 tab p.o. b.i.d. Unit #: [id number] #: [id number] Patient: SHAGGY ARCHER 2. Norvasc 5 mg p.o. daily. 3. Nexium 40 mg p.o. daily. 4. Aspirin 81 mg p.o. daily. 5. Potassium chloride 10 mEq p.o. daily. 6. Lasix 40 mg p.o. daily. FAMILY HISTORY Noncontributory. SOCIAL HISTORY Patient has a history of tobacco use, is a current smoker, one pack per day. He has recent and active opioid and amphetamine abuse, was just recently discharged from [facility] yesterday after detox and admission for suicidal ideation. REVIEW OF SYSTEMS A 14-point review of systems was attempted. Pertinent positives are as discussed above; otherwise, negative. PHYSICAL EXAMINATION VITAL SIGNS: Temperature 98.1, pulse 68, respirations 11, blood pressure 115/69. Blood pressure in the ER on arrival was 139/81, oxygen saturation 96%. Height 5'9", weight 160 pounds, BMI 23. NEUROLOGIC EXAM MENTAL STATUS: The patient is resting in bed upon entering the room. He is a little bit difficult to arouse initially, but once he is fully awake, he is able to speak appropriately and carry on a conversation. He is a poor historian, but he is oriented to person, place and time. He follows simple commands. He has no right/left confusion. No finger agnosia. No aphasia, dysarthria or apraxia. He is tearful but otherwise appropriate. CRANIAL NERVE EXAM: He demonstrates full pichardo of vision. Eyes are conjugate without ptosis or nystagmus. Extraocular movements are intact. Sensation of the face and scalp is intact. Strength of muscles of facial expression is intact. Hearing is intact to conversation. Tongue is midline. Uvula is midline. Palate elevation is normal. Head turning and shoulder shrug are unremarkable. Neck is supple. MOTOR EXAM: He demonstrates normal bulk and tone. Strength is equal, 5/5 in all extremities. SENSORY EXAM: Without extinction. GAIT: Gait and Romberg are deferred. REFLEXES: Unable to elicit. Toes are equivocal. COORDINATION: Unremarkable. No past-pointing. Normal nhia-vq-dahr. DIAGNOSTIC STUDIES As discussed above. IMPRESSION 1. Seizure activity last night. Stable. 2. History of remote seizure, per the patient. See above. 3. Heroin and amphetamine abuse, recent detox at [facility]. 4. Acute kidney injury. 5. Bipolar disorder. 6. History of hepatitis C. 7. Other medical history as discussed above. PLAN We will request an EEG. We will also request an MRI of the brain and Unit #: [id number] #: [id number] Patient: SHAGGY ARCHER request records from Dr. Bhardwaj's office to see when he was last seen there and what the plan was at that time to get further insight into his seizure history. Will go ahead and continue him on Keppra as he was able to tolerate it in the past without difficulty and he has history of multiple seizure events. Further recommendations will be made pending workup and further clinical course and review of past records and discussion with Dr. Alejandro upon his evaluation. Seizure precautions apply, including state driving law of no driving for 90 days. At this time nothing in the history or review of systems or workup to suggest GEOMAGNETICIAN infection. Nothing to suggest currently status epilepticus. Patient is stable. Nothing to suggest acute stroke. Please call for any questions or issues. We thank you very much for allowing us to assist in the care of this patient. Dictated by... Kira Syed A.P.R.N. for Shikha Hutchison/fady TD: 07/24/2016 11:07 JOB #: [id number] CONSULTATION REPORT Page 1 of 1 X Kira Syed APRN X CONSULTATION REPORT
--- NOTE | ~2016-07-24 | CT71 ---
[facility] A Service of [facility] RADIOLOGY TEXT RESULTS PATIENT: SHAGGY ARCHER LOCATION: [facility] : 67 UNIT #: [id number] AGE: [address]: Yeyo Pedro MD SEX: M ORDER DR: [id number] [facility] [address] [facility] [place], [place] [address] [id number] MR#: [id number] Acc #: [id number] NAME: SHAGGY ARCHER : 1965 SEX: M STUDY DATE/TIME: 07/24/2016 UNIT: [facility] ROOM: STUDY DESCRIPTION: CT Head Wo Contrast Attending Physician: Anthony Batista Aprn Ordering Physician: Anthony Batista Aprn Primary Care Physician: Primary Care Physician No MEDICAL IMAGING REPORT This report is preliminary unless electronic signature is present EXAM Head CT 07/24 05:39 hours INDICATIONS Weakness, dizziness and headache today after a seizure. History of lung cancer. The CT exam was performed with one or more of the following radiation dose reduction techniques: automatic exposure control, adjustment of mA and/or kV according to patient size, and iterative reconstruction. FINDINGS Axial images were obtained from base to the vertex without contrast. Comparison made with 04/24/2015. Ventricular size and configuration are normal. No acute infarct or hemorrhage is seen. There are no masses. There is no skull fracture. IMPRESSION Negative head CT. Dictated by... Duc Dhillon Jr., M.D. THIS IS AN ELECTRONICALLY VERIFIED REPORT Duc Dhillon Jr., M.D. at 07/25/2016 5:53 AM RLK/shawn TD: 07/24/2016 08:09 JOB #: [id number] MEDICAL IMAGING REPORT [facility] A Service [facility] RADIOLOGY TEXT RESULTS PATIENT: SHAGGY ARCHER LOCATION: [facility] 229 : 67 UNIT #: [id number] AGE: [address]: Yeyo Pedro MD SEX: M ORDER DR: Page 1 of 1 COPY
--- NOTE | ~2016-07-24 | DS ---
Unit #: [id number] #: [id number] Patient: SHAGGY ARCHER [id number] [address] [address] [id number] I MR#: [id number] NAME: SHAGGY ARCHER. ROOM: 229 Age: 50 Sex: M Admission Date: 07/24/2016 : 1965 Discharge Date: 07/25/2016 Attending Physician: Yeyo Pedro M.D. Primary Care Physician: No Primary Care Physician DISCHARGE SUMMARY ADMISSION DIAGNOSES 1. Seizure episode. 2. Acute kidney injury. 3. History of hepatitis C. 4. History of cirrhosis. 5. History of substance abuse. 6. History of hypertension. 7. Heroin and amphetamine abuse, recent detoxification at [facility]. 8. Bipolar disorder. 9. Chronic neck pain and chronic back pain with history of cervical neck fusion. 10. History of suicidal ideation. DISCHARGE DIAGNOSES 1. Seizure episode. 2. Acute kidney injury. 3. History of hepatitis C. 4. History of cirrhosis. 5. History of substance abuse. 6. History of hypertension. 7. Heroin and amphetamine abuse, recent detoxification at [facility]. 8. Bipolar disorder. 9. Chronic neck pain and chronic back pain with history of cervical neck fusion. 10. History of suicidal ideation. 11. Major depressive disorder, recurrent, moderate, F33.2. SPECIAL INSTRUCTIONS The patient was placed on an emergency 72-hour involuntary hospitalization hold secondary to mental illness. Start date 07/25/16 at 11:58 a.m., with release date 07/28/16 at 11:58 a.m. PLAN The plan is continued hospitalization with a planned transfer to [facility] once a bed is available. DIAGNOSTIC STUDIES LABORATORY: WBC 9.5, hemoglobin 13.3, hematocrit 40.9, platelet count 300,000 and sodium 139, potassium 3.9, chloride 105, CO2 25, glucose 105, BUN 17, creatinine 1.0, calcium 9.3, AST 22, ALT 17, alkaline phosphatase 66, total bilirubin 0.4, total protein 8.0, albumin 4.2, CK 55. Urine Unit #: [id number] #: [id number] Patient: SHAGGY ARCHER drug screen positive for amphetamines and opiates. IMAGING: Portable chest x-ray 07/24/[address] of the head without contrast 07/24/16, impression: No acute intracranial abnormality is appreciated. Study is motion limited despite use of motion limiting sequences. Mild nonspecific white matter disease likely due to small vessel disease. No intracranial mass effect. Mild atrophy for age group. Mucosal disease most apparent in the right maxillary sinus. CONDITION Stable. DISCHARGE MEDICATIONS 1. Neurontin 300 mg p.o. b.i.d. 2. K Desyrel 75 mg p.o. q.h.s. 3. Vistaril 25 mg p.o. t.i.d. 4. Nicotine transdermal patch 14 mg transdermally every morning. 5. Keppra 500 mg p.o. q.12 h. at 12 and midnight. 6. Norvasc 10 mg p.o. daily. 7. Lopressor 25 mg p.o. b.i.d. 8. Aspirin 81 mg p.o. q.24 h. 9. Hydrocodone and APAP 5/325 mg tab one tab p.o. q.6 h. p.r.n. pain. Changes in home medications Please note the following medications were discontinued due to the patient's acute kidney injury: Lasix 40 mg p.o. daily; Nexium 40 mg p.o. daily; K-Dur 10 mEq p.o. daily. HOSPITAL COURSE The patient is a 50-year-old male who presented to [facility] on the date of admission after family found him having seizures at home and he was brought to the emergency department. Patient follows up with Dr. 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 Patient is known to be very emotionally labile and crying while in the emergency department. Neurological exam was considered nonfocal in the emergency department. However, Neurology was consulted and the patient was admitted for further evaluation and management of his condition. Please refer to the history and physical report for complete details. The patient was evaluated by Kira Syed APRN, for Dr. Alejandro for Neurology. An EEG was ordered. Patient however refused to have the EEG performed. Diagnostic imaging was performed and results are as dictated above. Patient was started on Keppra in the emergency department. At this point patient has had no further reported seizure activity. Seizure precautions will apply including state driving law, no driving for 90 days. There is nothing to suggest acute stroke. Patient is stable from a neurologic standpoint. Patient was recently discharged from [facility] after having been discharged on 07/23/16 with the following discharge psychiatric diagnoses: Major depressive disorder recurrent and moderate, opioid use disorder moderate, amphetamine use disorder moderate. Review of the history and physical report for that admission indicates that the patient was there for heroin abuse. Dr. May was consulted during this hospital Unit #: [id number] #: [id number] Patient: SHAGGY ARCHER admission for depression. At this time the patient is noted to be exhibiting some aggressive behavior. He also states that there are worms in his stool and bugs coming out of his head. Patient has been evaluated by Dr. Pedro as well as Kira Syed APRN, for neurology service. No further neurologic workup is planned at this time given the patient is refusing his EEG and CT of the head and MRI of the brain are negative. The patient's blood pressure has been elevated since the patient's Lasix and UDAY inhibitor were discontinued at the time of admission. Patient will remain off of these medications. He has been started on hydralazine but that now will be discontinued. He will continue on beta nica, specifically Lopressor 25 mg p.o. b.i.d. for hypertension. The patient has been evaluated by Dr. Pedro again today and medically cleared as he is medically stable for transfer [facility]. An order has been given by Dr. May for the patient to be placed on a 72-hour hold as he was alluding to leaving against medical advice. Dr. May has also given the [facility]. Patient is aware of the plan at this time. Patient will be transferred via ambulance as soon as bed availability is confirmed. Dictated by... Mariana Goodman A.P.R.N. for Yeyo Pedro M.D. SYDNEE/norma TD: 07/25/2016 15:16 JOB #: [id number] DISCHARGE SUMMARY Page 1 of 1 X Mariana Goodman APRN DISCHARGE SUMMARY
--- NOTE | ~2016-07-24 | MR18 ---
[facility] A Service of [facility] RADIOLOGY TEXT RESULTS PATIENT: SHAGGY ARCHER LOCATION: [facility] 229-01 : 67 UNIT #: [id number] AGE: [address]: Yeyo Pedro MD SEX: M ORDER DR: [id number] [facility] [address] [place], [place] [address] [id number] MR#: [id number] Acc #: [id number] NAME: SHAGGY ARCHER. : 1965 SEX: M STUDY DATE/TIME: 07/24/2016 12:25 UNIT: CEDOF ROOM: 59287 STUDY DESCRIPTION: MR Brain Wo Contrast Attending Physician: Yeyo Pedro M.D. Ordering Physician: Anthony Batista Aprn Primary Care Physician: No Primary Care Physician MRI CENTER REPORT This report is preliminary unless electronic signature is present. EXAM MRI brain without HISTORY Heroin amphetamine abuse. Recent detox at [facility]. Seizure. Extremely claustrophobic. FINDINGS MRI of the brain was performed without contrast using routine 1.5T imaging technique. Comparison head CT earlier today. There is no evidence for a recent ischemic insult on the diffusion series. No Chiari-I malformation. Incidental tiny pineal region cyst. No extraaxial fluid collection. No intracranial mass effect. Mild periventricular white matter signal abnormality nonspecific likely due to small vessel disease. Also few small areas white matter signal abnormality in the frontal lobes most apparent right frontal deep white matter. Mild volume loss in general for age group. The major intracranial flow voids are maintained. Small amount of fluid or inflammatory change mastoid air cells. Follow-up mucosal disease right maxillary sinus. Mucosal disease in the ethmoid air cells bilaterally. No MRI evidence for intracranial hemorrhage. Patient unable to receive contrast secondary to renal insufficiency. Nothing to suggest mesial temporal sclerosis. IMPRESSION 1. No acute intracranial abnormality is appreciated. Study is motion limited despite use of motion limiting sequences. 2. Mild nonspecific white matter disease likely due to small vessel disease. 3. No intracranial mass effect. Mild atrophy for age group. [facility] A Service of [facility] RADIOLOGY TEXT RESULTS PATIENT: SAHGGY ARCHER LOCATION: [facility] 229-01 : [birth year] UNIT #: [id number] AGE: [address]: Yeyo Pedro MD SEX: M ORDER DR: 4. Mucosal disease most apparent in the right maxillary sinus. STAT * RESULT Dictated by... Angela Chi M.D. THIS IS AN ELECTRONICALLY VERIFIED REPORT Angela Chi M.D. at 07/24/2016 9:32 PM MIKE/henrietta TD: 07/24/2016 15:41 JOB #: [id number] MRI CENTER REPORT Page 1 of 1 COPY
[2016-07-24 05:41] LABS: BASOPHIL% 0.4 % (0-2.5); EOSINOPHIL# 0.1 X10e3 (0-0.7); EOSINOPHIL% 1.3 % (0.0-7.0); HEMATOCRIT 41.3 % (38.0-50.0); HEMOGLOBIN 13.3 gm/dL (13.0-16.0); LYMPHOCYTE% 27.5 % (17.0-45.0); MEAN CELL VOLUME 84.5 FL (83-96); MEAN CORPUSCULAR HEMOGLOBIN 27.1 PG (28-34); MEAN CORPUSCULAR HGB CONC 32.1 g/dL (30-36); MEAN PLATELET VOLUME 7.4 FL (6.5-11.5); MONOCYTE# 1.1 X10e3 (0-1.0); MONOCYTE% 9.5 % (3.0-12.0); NEUTROPHIL# 6.8 X10e3 (1.5-7.1); NEUTROPHIL% 61.3 % (40-75); PLATELET COUNT 316 X10e3 (140-420); RED BLOOD COUNT 4.89 X10e (3.90-5.60); RED CELL DISTRIBUTION WIDTH 15.7 % (11.0-15.5); WHITE BLOOD COUNT 11.1 X10e3 (4.0-10.5)
[2016-07-24 05:45] LABS: DIFF IND NO
[2016-07-24 06:09] LABS: ALBUMIN SERUM 3.7 g/dL (3.5-5.0); BILIRUBIN, DIRECT 0.1 mg/dL (0.0-0.2); BILIRUBIN,INDIRECT 0.2 mg/dL (0.0-0.9); BILIRUBIN,TOTAL 0.3 mg/dL (0.2-2.0); BUN/CREATININE RATIO 17.14; CALCIUM SERUM 8.6 mg/dL (8.4-10.2); CREATININE SERUM 2.8 mg/dL (0.6-1.4); GLOM FILT RATE Estimated 25.3 mL/min (>60); POTASSIUM 3.8 mmol/L (3.5-5.1); PROTEIN TOTAL SERUM 7.1 g/dL (6.0-8.3)
[2016-07-24 06:59] LABS: URINE APPEARANCE CLEAR; URINE BILIRUBIN NEG (NEG); URINE BLOOD 3+ (NEG); URINE COLOR DK YELLOW; URINE GLUCOSE NEG (NEG); URINE KETONE NEG (NEG); URINE LEUKOCYTE ESTERASE NEG (NEG); URINE NITRATE NEG (NEG); URINE PROTEIN 1+ (NEG); URINE SPECIFIC GRAVITY 1.019 (1.003-1.035)
[2016-07-24 07:02] LABS: URBCS1 AUWI 50-100 /[HPF] (0-2); URINE BACTERIA AUWI NEG (NEGATIVE); URINE SQUAMOUS EPITHELIAL CELL NONE SEEN /[HPF]; UWBCS1 AUWI 0-2 (0-5)
[2016-07-24 07:27] LABS: CULTURE INDICATED? NO
[2016-07-24 07:28] LABS: URINE AMORPHOUS SEDIMENT AMORP URATES
[2016-07-24 07:45] LABS: AMPHETAMINE POS (NEG); BARBITURATES NEG (NEG); BENZODIAZEPINES NEG (NEG); COCAINE NEG (NEG); MARIJUANA NEG (NEG); OPIATES POS (NEG); TRICYCLIC ANTIDEPRESSANTS NEG (NEG); U METHADONE NEG (NEG)
[2016-07-24] MEDS ORDERED: ZESTORETIC 20-1 EAC1 PO (07:46)
[2016-07-24] MEDS ORDERED: NORVASC PO (07:46)
[2016-07-24] MEDS ORDERED: ASPIRIN81 MG PO (07:47)
[2016-07-24] MEDS ORDERED: NEXIUM PO (07:47)
[2016-07-24] MEDS ORDERED: LASIX PO (07:50)
[2016-07-24] MEDS ORDERED: K-DUR10 MEQ PO (07:50)
[2016-07-24] MEDS ORDERED: LORTAB 10-3251 EACH PO (20:12)
[2016-07-24] MEDS ORDERED: METHADONE HCL10 MG PO (20:13)
[2016-07-25 12:42] LABS: HEMATOCRIT 40.9 % (38.0-50.0); HEMOGLOBIN 13.3 gm/dL (13.0-16.0); MEAN CELL VOLUME 84.1 FL (83-96); MEAN CORPUSCULAR HEMOGLOBIN 27.4 PG (28-34); MEAN CORPUSCULAR HGB CONC 32.6 g/dL (30-36); MEAN PLATELET VOLUME 6.9 FL (6.5-11.5); RED BLOOD COUNT 4.87 X10e (3.90-5.60); RED CELL DISTRIBUTION WIDTH 15.3 % (11.0-15.5); WHITE BLOOD COUNT 9.5 X10e3 (4.0-10.5)
[2016-07-25 13:16] LABS: ALBUMIN SERUM 4.2 g/dL (3.5-5.0); BILIRUBIN,TOTAL 0.4 mg/dL (0.2-2.0); CALCIUM SERUM 9.3 mg/dL (8.4-10.2); POTASSIUM 3.9 mmol/L (3.5-5.1)
== END 2016-07-25 20:02 | DRG 683 ==
LOC: CED 03:02 → CEDOF 07:30 → CED 07:47 → CEDOF 13:11 → C2A 19:54
PROVIDERS: Internal Medicine; Nurse Practitioner Family
DX: N17.9 Acute kidney failure, unspecified (principal); I50.32 Chronic diastolic (congestive) heart failure; I11.0 Hypertensive heart disease with heart failure; F31.5 Bipolar disorder, current episode depressed, severe, with psychotic features; G40.909 Epilepsy, unspecified, not intractable, without status epilepticus; I25.10 Atherosclerotic heart disease of native coronary artery without angina pectoris; F11.10 Opioid abuse, uncomplicated; F15.10 Other stimulant abuse, uncomplicated; J44.9 Chronic obstructive pulmonary disease, unspecified; K21.9 Gastro-esophageal reflux disease without esophagitis; G43.909 Migraine, unspecified, not intractable, without status migrainosus; Z79.82 Long term (current) use of aspirin; F17.210 Nicotine dependence, cigarettes, uncomplicated; Z71.6 Tobacco abuse counseling; F41.9 Anxiety disorder, unspecified; I25.2 Old myocardial infarction; Z86.19 Personal history of other infectious and parasitic diseases
CPT/HCPCS: 70450; 70551; 71010; 80048; 80053; 80076; 80307; 81003; 82550; 85025; 85027; 85379; 93005; 96374; 99285; J1953; J2060

== ENCOUNTER 2016-07-25 16:00 | Inpatient (IN) | payer MEDICARE ==
--- NOTE | ~2016-07-25 | PA ---
Unit #: [id number] #: [id number] Patient: DAVID ARCHER [id number] [facility] [place] [address] [id number] I MR#: [id number] NAME: DAVID ARCHER. ROOM: 84 Age: 50 Sex: M Admission Date: 07/25/2016 : 1965 Date of Assessment: 07/26/2016 Attending Physician: Darius May M.D. Admitting Physician: Darius May M.D. Primary Care Physician: Primary Care Physician No PSYCHIATRIC ASSESSMENT INFORMANT The patient reliability, fair. Chart reliability, good. CHIEF COMPLAINT Substance abuse, depression, anxiety. HISTORY OF PRESENT ILLNESS Mr. David Archer is a 50-year-old male, transferred from [facility]. The patient reported that he was admitted due to seizure. The patient reported having some withdrawal symptoms. Subsequently, the patient was transferred to [facility] for psychiatric stabilization. The patient has a history of opioid abuse and amphetamine abuse. The patient reported suicidal ideation to the intake staff, but later reported that he is doing fine. The patient reported history of hallucination while he was in the hospital. The patient reported history of tobacco use, age of onset 16, crack cocaine, age of onset 23; LSD, age of onset 35; opioid, age of onset 30; amphetamine, age of onset 49. The patient needed inpatient admission at this time for psychiatric stabilization. PAST PSYCHIATRIC HISTORY Remarkable for history of previous treatment at [facility]. Multiple admission, last admission on 07/20/2016. FAMILY HISTORY AND SOCIAL HISTORY The patient's family history is unavailable. Poor support system. No history of abuse. MEDICAL HISTORY Remarkable for hypertension, GERD, chronic back pain, 8 bulging disks, lung cancer, history of seizure disorder. MEDICATION HISTORY The patient is on Keppra, lisinopril, Norvasc, Coreg, Nexium, and Plavix. ALLERGIES No known drug allergies. SUBSTANCE ABUSE HISTORY Please see above. REVIEW OF SYSTEMS HEENT: Eyes, clear. Ears, nose, mouth, and throat; clear. Unit #: [id number] #: [id number] Patient: DAVID ARCHER CARDIOVASCULAR: Unremarkable. RESPIRATORY: Unremarkable. GI: Unremarkable. : Unremarkable. SKIN: Unremarkable. LYMPH NODE: Unremarkable. NEUROLOGIC: Unremarkable. ENDOCRINE: Unremarkable. HEMATOLOGIC: Unremarkable. ALLERGIC/IMMUNOLOGIC: Unremarkable. MUSCULOSKELETAL: Muscle strength and tone, no atrophy or abnormal movement. Gait normal. MENTAL STATUS EXAMINATION CONSTITUTIONAL: Measurement of vital signs; temperature 98.2, pulse 71, respirations 16, blood pressure 155/90, height 5 feet 9 inches, weight 155 pounds. GENERAL APPEARANCE: The patient dressed casually. Hygiene and grooming, fair. No facial deformity noted. MUSCULOSKELETAL: Please see above. PSYCHIATRIC EXAMINATION Description of speech; regular rate, normal volume, normal articulation. Description of thought process, goal directed. Description of association, intact. Description of abnormal psychotic thinking; the patient denied any hallucination or delusions, but denied any suicidal or homicidal ideation at this time, but reported earlier history of substance abuse. Description of the patient's judgment, concerning everyday activity, poor. Social situation, poor. Concerning psychiatric condition, poor. Complete mental examination; oriented in time, place, and person. Recent and remote memory, fair. Attention span and concentration, fair. Language, intact. Fund of knowledge, fair. Mood and affect, sad and dysphoric. Insight and judgment, fair to poor. ASSETS AND LIABILITIES Assets; the patient is articulate, able to take care of his ADL. Liability; history of depression and substance abuse. ADMITTING DIAGNOSES Psychiatric: Psychosis, not otherwise specified, F29.0; opioid use disorder, F11.20; amphetamine use disorder, severe, F15.20. Secondary diagnosis: Deferred. Medical diagnosis: Please refer to H and P. Stressors: Psychosocial stressors. PSYCHIATRIC PLAN AND TREATMENT GOAL AND DISCHARGE PLAN 1. Advised to admit the patient on the inpatient unit. Provide safe, supportive, and structured environment. 2. Advised to resume the patient's home medication, detox protocol and detox monitoring. The patient to attend all the programing on the inpatient unit. 3. Treatment goal; to attain euthymic mood, gain insight into his problem, and learn coping skills. Unit #: [id number] #: [id number] Patient: DAVID ARCHER 4. Discharge plan; plan to stabilize the patient and consider followup in outpatient program. ESTIMATED LENGTH OF STAY 3 to 5 days. Dictated by... Darius May M.D. ANDREW/yoliel TD: 07/26/2016 18:37 JOB #: [id number] PSYCHIATRIC ASSESSMENT Page 1 of 1 X Darius May MD PSYCHIATRIC ASSESSMENT
--- NOTE | ~2016-07-25 | DS ---
Unit #: [id number] #: [id number] Patient: SHAGGY ARCHER [id number] [facility] [address] [place] [address] [id number] I MR#: [id number] NAME: SHAGGY ARCHER. ROOM: 84 Age: 50 Sex: M Admission Date: 07/25/2016 : 1965 Discharge Date: 07/26/2016 Attending Physician: Darius May M.D. Primary Care Physician: Primary Care Physician No DISCHARGE SUMMARY REASON FOR ADMISSION Psychosis. DIAGNOSTIC STUDIES Unremarkable except urine drug screen positive for amphetamine and opiate. HOSPITAL COURSE The patient was admitted to inpatient unit. The patient was stabilized on the inpatient unit. The patient showed improvement in his mood and affect, denied any psychotic symptoms, or any suicidal ideation. Maintained safe behavior. The patient was subsequently discharged with the plan to follow up in outpatient clinic. At the time of discharge, the patient denied any psychotic symptoms or any suicidal ideation. DISCHARGE DIAGNOSES [place] I Psychosis, NOS, F29.0. Opiate use disorder, severe, F11.20. Amphetamine use disorder, [id number], F15.20. [place] II Deferred. [place] III Please refer to history and physical. [place] IV Psychosocial stressors. [place] V INSTRUCTIONS TO PATIENT The patient is to followup in outpatient clinic and licensed clinical social worker. CONDITION AT DISCHARGE The patient is pleasant and cooperative, denied any psychotic symptoms or any suicidal ideation. PROGNOSIS Guarded. DIET AND ACTIVITY Diet and activity as tolerated. Unit #: [id number] #: [id number] Patient: SHAGGY ARCHER Dictated by... Shikha Jonas/ida TD: 07/27/2016 09:54 JOB #: [id number] DISCHARGE SUMMARY Page 1 of 1 X Darius May MD X DISCHARGE SUMMARY
--- NOTE | ~2016-07-25 | HP ---
Unit #: [id number] #: [id number] Patient: DAVID ARCHER [id number] [place] [address] [id number] MR#: [id number] NAME: DAVID ARCHER. ROOM: P184 Age: 50 Sex: M Admission Date: 07/25/2016 : 1965 Attending Physician: Darius May M.D. Admitting Physician: Darius May M.D. Primary Care Physician: Primary Care Physician No HISTORY AND PHYSICAL NOTE David is a 50 year old who was admitted and discharged within the first 24 hours. He was not seen for an H&P. Dictated by... Katie Weeks P.A.-C. for Shikha Newsome/mitali TD: 07/27/2016 00:50 JOB #: [id number] HISTORY AND PHYSICAL Page 1 of 1 X Katie Weeks HISTORY AND PHYSICAL
[~2016-07-25 16:00] MED LIST changes: +ASPIRIN81 MG PO; +K-DUR10 MEQ PO; +LORTAB 10-3251 EACH PO; +METHADONE HCL10 MG PO; +NEXIUM PO; +ZESTORETIC 20-1 EAC1 PO
== END 2016-07-26 11:45 | disposition home or self-care (01) | DRG 885 ==
LOC: P1E 19:57
PROC: HZ2ZZZZ Detoxification Services for Substance Abuse Treatment (ICD-10-PCS; principal; 2016-07-25)
DX: F29 Unspecified psychosis not due to a substance or known physiological condition (principal); F11.20 Opioid dependence, uncomplicated; I10 Essential (primary) hypertension; F15.20 Other stimulant dependence, uncomplicated; K21.9 Gastro-esophageal reflux disease without esophagitis; G40.909 Epilepsy, unspecified, not intractable, without status epilepticus; M54.9 Dorsalgia, unspecified; G89.29 Other chronic pain